=== PATIENT | female | born 1945 | race Caucasian/White ===

== ENCOUNTER → 2016-08-30 | Outpatient (CLI) | payer MEDICARE, OTHER | LOC: MW.CHORTHO 08:00 | PROVIDERS: ATTEND Physician Assistant | DX: M17.11 Unilateral primary osteoarthritis, right knee (principal); M17.12 Unilateral primary osteoarthritis, left knee | CPT/HCPCS: 20610-50; G0463; J1040 ==

== ENCOUNTER → 2016-09-28 | Outpatient (CLI) | payer MEDICARE, OTHER ==
--- NOTE | 2016-09-29 14:27 | CR ---
EXAM DATE: 09/28/16 PATIENT'S AGE: 70 Patient: NASIM SAEZ Facility: [place], [place] Site . Site : 1945 Study: XRay Hip Left w/Pelvis [id number]/26/2017 9:45:09 AM Ordering Physician: Stephane Alcaraz Pa-C Final Report: HISTORY: Pain. Findings: Two standing AP view of the pelvis and a frogleg view of the left hip demonstrates the lumbar spine lists to the right of midline. There is degenerative changes of the discs and facets the lower lumbar spine. There is mild degenerative changes of the inferior aspect of the right SI joint. The left femoral head measures 5 mm superior to the right. There is mild decreased joint space present within both hips. There is mild spurring of the left femoral head. Impression: 1. The left femoral head measures 5 mm superior to the right. 2. 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 3. Mild decreased joint spaces within both hips with mild spurring of the left femoral head. Dictated by Heather Rojas MD @ Sep 29 2016 12:22AM (Electronic Signature) Report Signed by Proxy. LYNN
== END ==
LOC: MW.CHORTHO 07:42
PROVIDERS: ATTEND Physician Assistant
DX: M25.552 Pain in left hip (principal); M70.62 Trochanteric bursitis, left hip
CPT/HCPCS: 20610; 73502-26-LT; 73502-LT; G0463; J1040